=== PATIENT | male | born 1980 | race Caucasian/White ===

== ENCOUNTER 2018-11-16 22:42 | Emergency (ER) | payer OTHER ==
[~2018-11-16] VITALS: Ht 175.3 cm; Wt 72.6 kg
[2018-11-16] MEDS ORDERED: IBUPROFEN 800 MG TABLET ONE (23:41)
[2018-11-16] MEDS ORDERED: TDAP DIPH,PERTUSS,TET VAC/PF 0.5 ML DISP.SYRIN IM ONE ×2 (23:44→23:45)
[2018-11-16] MEDS ORDERED: IBUPROFEN 800 MG TABLET PO ONE (23:45)
--- NOTE | 2018-11-17 00:21 | NUR ---
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 Gait is stable v/s wnl. States sherly advised of d/c
--- NOTE | 2018-11-17 01:02 | NUR ---
D/c to home via ub[employer]. Signed and understand ACI. V/s wnl. Follow up with [facility] clinic fo kassi toe
[2018-11-17 01:07] VITALS: BP 100/74
== END 2018-11-17 01:09 | disposition home or self-care (01) ==
LOC: ER 22:44
DX: S92.412A Displaced fracture of proximal phalanx of left great toe, initial encounter for closed fracture (principal); S80.212A Abrasion, left knee, initial encounter; W20.8XXA Other cause of strike by thrown, projected or falling object, initial encounter; Y93.89 Activity, other specified; Y92.89 Other specified places as the place of occurrence of the external cause; Y99.8 Other external cause status
CPT/HCPCS: 73630; 90715; A4663

== ENCOUNTER 2020-03-12 08:38 | Emergency (ER) | payer SELFPAY ==
[~2020-03-12] VITALS: Ht 170.2 cm; Wt 70.3 kg
--- NOTE | 2020-03-12 08:47 | NUR ---
Pt states he was playing basketball on Sunday and was hit in the right side of jaw, causing a small lac inside his mouth. Since, pt has developed approx 1-1.5cm diameter abscess on his lower gumline. Pt c/o 10/07 pain currently. No other complaints, slight distress noted when talking.
--- NOTE | 2020-03-12 09:02 | NUR ---
Gave pt RX and d/c instructions, pt verbalized understanding.
== END 2020-03-12 09:04 | disposition home or self-care (01) ==
LOC: ER 08:38
DX: K04.7 Periapical abscess without sinus (principal)
CPT/HCPCS: A4663

== ENCOUNTER 2020-06-24 23:37 | Emergency (ER) | payer SELFPAY ==
[~2020-06-24] VITALS: Ht 172.7 cm; Wt 72.6 kg
[2020-06-25 00:25] LABS: BASOPHILS # (AUTO) 0.1 K/uL (0.0-8.0); BASOPHILS % (AUTO) 0.7 % (0.0-2.0); EOSINOPHILS # (AUTO) 0.5 K/uL (0.0-0.7); EOSINOPHILS % (AUTO) 5.6 % (0.0-7.0); HEMATOCRIT 38.1 % (36.7-47.1); LYMPHOCYTES # (AUTO) 0.9 K/uL (20.0-40.0); LYMPHOCYTES % (AUTO) 11.4 % (20.5-51.5); MEAN CORPUSCULAR HEMOGLOBIN 33.3 uug (23.8-33.4); MEAN CORPUSCULAR HGB CONC 34 g/dL (32.5-36.3); MEAN CORPUSCULAR VOLUME 97.5 fL (73.0-96.2); MONOCYTES # (AUTO) 1.4 K/uL (2.0-10.0); MONOCYTES % (AUTO) 17.4 % (0.0-11.0); NEUTROPHILS # (AUTO) 5.3 K/uL (1.8-8.9); NEUTROPHILS % (AUTO) 64.9 % (38.5-71.5); PLATELET COUNT (AUTO) 301 K/uL (152-348); RED BLOOD CELL COUNT(AUTO) 3.91 MIL/uL (4.06-5.63); WHITE BLOOD COUNT (AUTO) 8.2 K/uL (3.6-10.2)
[2020-06-25 00:41] LABS: CREATININE 1.2 mg/dL (0.6-1.3); POTASSIUM 3.6 mmol/L (3.5-5.1)
[2020-06-25 00:49] LABS: *BILIRUBIN,URIN NEGATIVE (NEGATIVE); *BLOOD, URINE NEGATIVE (NEGATIVE); *CLARITY,URINE CLEAR (CLEAR); *COLOR,URINE YELLOW (YELLOW); *KETONES,URINE NEGATIVE (NEGATIVE); *UROBILINOGEN,URINE 0.2 E.U./dl (NORMAL); LEUKOCYTE ESTERASE ,URINE NEGATIVE (NEGATIVE); NITRITE, URINE NEGATIVE (NEGATIVE); PH,URINE 8.5 (5.0-8.0); UGLUCOSE NEGATIVE (NEGATIVE)
[2020-06-25 00:58] LABS: BILIRUBIN,DIRECT 0.3 mg/dL (0.0-0.2); BILIRUBIN,TOTAL 0.9 mg/dL (0.2-1.0); TOTAL PROTEIN, SERUM 7.5 g/dL (6.4-8.2)
--- NOTE | 2020-06-25 01:00 | NUR ---
Patient is resting in room, no acute distress is noted at this time.
[2020-06-25 02:16] LABS: EOSINOPHILS % (MANUAL) 5 % (0-8); LYMPHOCYTES % (MANUAL) 10 % (20-40); MONOCYTES % (MANUAL) 13 % (2-10); NEUTROPHILS % (MANUAL) 72 % (42-75)
--- NOTE | 2020-06-25 03:00 | NUR ---
Patient is sleeping in room, eyes closed.
[2020-06-25 04:15] VITALS: BP 107/71
--- NOTE | 2020-06-25 04:15 | NUR ---
Patient discharged to home in stable condition. Written and verbal after care instructions given. Patient verbalizes understanding of instructions. Stressed follow up or return to ER for worsening s/s. Patient ambulates without difficulty, left with all personal belongings.
== END 2020-06-25 04:15 | disposition home or self-care (01) ==
LOC: ER 23:41
DX: R60.0 Localized edema (principal); E87.1 Hypo-osmolality and hyponatremia; R74.01 Elevation of levels of liver transaminase levels
CPT/HCPCS: 36415; 70030-TC; 85025; 93005; A4663

== ENCOUNTER 2020-10-10 09:34 | Inpatient (IN) | payer SELFPAY ==
[~2020-10-10] VITALS: Ht 175.3 cm; Wt 72.6 kg
--- NOTE | 2020-10-10 09:40 | NUR ---
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
[2020-10-10] MEDS ORDERED: EPINEPHRINE 1:10,000 1 MG/10 ML DISP.SYRIN ONE (09:55)
[2020-10-10] MEDS ORDERED: FAMOTIDINE. 20 MG/2 ML VIAL IV ONE ×2 (09:55→10:00)
[2020-10-10] MEDS ORDERED: EPINEPHRINE 1 MG/1 ML AMP ONE (09:55)
[2020-10-10] MEDS ORDERED: methylPREDNISolone SOD SUCC 125 MG/2 ML VIAL ONE (09:55)
[2020-10-10] MEDS ORDERED: methylPREDNISolone SOD SUCC 125 MG/2 ML VIAL IV ONE (10:00)
[2020-10-10] MEDS ORDERED: EPINEPHRINE 1 MG/1 ML AMP IM ONE (10:00)
[2020-10-10] MEDS ORDERED: EPINEPHRINE 1:10,000 1 MG/10 ML DISP.SYRIN IV ONE (10:15)
--- NOTE | 2020-10-10 10:20 | NUR ---
Patient no longer feels like his throat is swelling, noted talking on cell phone at this time, vitals signs are stable at this time
[2020-10-10 10:26] LABS: BASOPHILS % (AUTO) 0.6 % (0.0-2.0); EOSINOPHILS # (AUTO) 0.5 K/uL (0.0-0.7); HEMATOCRIT 41.4 % (36.7-47.1); HEMOGLOBIN 13.9 g/dL (12.5-16.3); LYMPHOCYTES # (AUTO) 2.6 K/uL (20.0-40.0); LYMPHOCYTES % (AUTO) 38.9 % (20.5-51.5); MEAN CORPUSCULAR HEMOGLOBIN 33.1 uug (23.8-33.4); MEAN CORPUSCULAR HGB CONC 34 g/dL (32.5-36.3); MEAN CORPUSCULAR VOLUME 98.6 fL (73.0-96.2); MONOCYTES # (AUTO) 0.4 K/uL (2.0-10.0); MONOCYTES % (AUTO) 5.9 % (0.0-11.0); NEUTROPHILS # (AUTO) 3.1 K/uL (1.8-8.9); NEUTROPHILS % (AUTO) 46.6 % (38.5-71.5); PLATELET COUNT (AUTO) 154 K/uL (152-348); WHITE BLOOD COUNT (AUTO) 6.7 K/uL (3.6-10.2)
[2020-10-10 10:32] LABS: CREATININE 1.2 mg/dL (0.6-1.3); POTASSIUM 3.7 mmol/L (3.5-5.1)
[2020-10-10 10:37] LABS: BILIRUBIN,DIRECT 0.5 mg/dL (0.0-0.2); BILIRUBIN,TOTAL 1.2 mg/dL (0.2-1.0); TOTAL PROTEIN, SERUM 7.3 g/dL (6.4-8.2)
--- NOTE | 2020-10-10 11:20 | NUR ---
1006 vital sign in MD charting is incorrect, MD made aware
[2020-10-10] MEDS ORDERED: ACETAMINOPHEN 325 MG TABLET PO PRN (13:45)
[2020-10-10] MEDS ORDERED: diphenhydrAMINE 50 MG/1 ML VIAL IV PRN (13:45)
[2020-10-10] MEDS ORDERED: MAGNESIUM HYDROXIDE 30 ML LIQUID UDC PO PRN (13:45)
[2020-10-10] MEDS ORDERED: HYDROCODONE/APAP 5-325MG TABLET PO PRN ×2 (13:45→14:00)
[2020-10-10] MEDS ORDERED: IV NS 1000 ML 1,000 ML IV PRN (13:45)
[2020-10-10] MEDS ORDERED: ONDANSETRON 4 MG/2 ML VIAL IV PRN (13:45)
--- NOTE | 2020-10-10 13:54 | NUR ---
Patient is eating lunch tray with good appetite. "I feel really better." per patient. Patient is waiting for [facility] bed & nurse@this time
[2020-10-10] MEDS: methylPREDNISolone SOD SUCC 125 MG/2 ML VIAL IV SCH ×2 (14:00→22:17)
[2020-10-10] MEDS ORDERED: diphenhydrAMINE 50 MG/1 ML VIAL IV ONE (18:00)
[2020-10-10] MEDS ORDERED: diphenhydrAMINE 50 MG/1 ML VIAL ONE (18:07)
--- NOTE | 2020-10-10 18:25 | NUR ---
Patient noted resting in bed, awaiting bed on medsurg unit
--- NOTE | 2020-10-10 19:22 | NUR ---
Report given by LADARIUS Regalado. Pt. denies sob, swallowing at this time.
--- NOTE | 2020-10-10 20:00 | NUR ---
Gave report to LADARIUS Yung for transfer to CCU.
--- NOTE | 2020-10-10 20:45 | NUR ---
Received patient from the ER. Patient arrived on gurney, but able to ambulate to his bed. Patient is A/O x4, here for severe allergic reaction to a drink that he was not aware of contained coconut, to which he is allergic to. Patient presents with NO SOB, NO signs of respiratory distress. Patient not complaining of any of the issues associated with his allergic reaction which he did have in the ER on arrival. No sign of angioedema, lips, tongue, and throat WNL in size and color, NO report of difficulty swallowing. Skin is clear, NO sign of urticaria. Patient placed on the monitor. VS stable, BP 121/91, HR 72, Resp 18, SpO2 100% on RA. Patient is in good spirits but was justifiably concerned on his arrival in the ER, and remains concerned of the symptoms reappearing. Reassured him that I have orders for all medications necessary should any symptoms present.
[2020-10-10 20:54] VITALS: BP 121/91
[2020-10-10 21:00] VITALS: BP 144/77
[2020-10-10 22:00] VITALS: BP 119/77
[2020-10-10] MEDS: FAMOTIDINE. 20 MG/2 ML VIAL IV SCH (22:17)
[2020-10-10 23:00] VITALS: BP 121/75
[2020-10-11] VITALS (16 sets, daily range): BP systolic 97–118; BP diastolic 58–81
[2020-10-11 05:05] LABS: BASOPHILS % (AUTO) 0.1 % (0.0-2.0); EOSINOPHILS % (AUTO) 0.2 % (0.0-7.0); HEMATOCRIT 38.8 % (36.7-47.1); HEMOGLOBIN 13.2 g/dL (12.5-16.3); LYMPHOCYTES # (AUTO) 0.7 K/uL (20.0-40.0); LYMPHOCYTES % (AUTO) 7.3 % (20.5-51.5); MEAN CORPUSCULAR HEMOGLOBIN 33.8 uug (23.8-33.4); MEAN CORPUSCULAR HGB CONC 34 g/dL (32.5-36.3); MEAN CORPUSCULAR VOLUME 99.5 fL (73.0-96.2); MONOCYTES # (AUTO) 0.1 K/uL (2.0-10.0); MONOCYTES % (AUTO) 1.6 % (0.0-11.0); NEUTROPHILS # (AUTO) 8.4 K/uL (1.8-8.9); NEUTROPHILS % (AUTO) 90.8 % (38.5-71.5); PLATELET COUNT (AUTO) 138 K/uL (152-348); WHITE BLOOD COUNT (AUTO) 9.2 K/uL (3.6-10.2)
[2020-10-11 05:15] LABS: BILIRUBIN,TOTAL 0.7 mg/dL (0.2-1.0); CREATININE 1.3 mg/dL (0.6-1.3); MAGNESIUM 1.7 mg/dL (1.8-2.4); POTASSIUM 3.8 mmol/L (3.5-5.1); TOTAL PROTEIN, SERUM 7.4 g/dL (6.4-8.2)
--- NOTE | 2020-10-11 06:30 | NUR ---
Patient remains stable this morning with NO SOB, and NO signs of respiratory distress during the night. Throughout the night, the patient did not complain of any of the symptoms associated with his allergic reaction reoccurring. No sign of angioedema, lips, tongue, and throat WNL in size and color, NO report of difficulty swallowing at this time. Skin remains clear, NO sign of urticaria. PRN medications not needed during shift. VS remained stable during the night. Patient's HR did drop into the high 50s while sleeping, however patient is athletically active and this is normal for him, non-symptomatic drop in heart rate.
[2020-10-11] MEDS: methylPREDNISolone SOD SUCC 125 MG/2 ML VIAL IV SCH ×2 (06:51→14:02)
[2020-10-11] MEDS: FAMOTIDINE. 20 MG/2 ML VIAL IV SCH (08:30)
--- NOTE | 2020-10-11 09:02 | NUR ---
Pt.was seen by BHAVANI AYALA NP
[2020-10-11] MEDS: MAGNESIUM SULFATE/D5W 100 ML IV SCH ×2 (10:41→11:42)
[2020-10-11] MEDS ORDERED: FAMO-132 PO (11:10)
[2020-10-11] MEDS ORDERED: PRED20TA PO (11:10)
[2020-10-11] MEDS ORDERED: EPIN0.3A4 IM (11:10)
[2020-10-11] MEDS ORDERED: predniSONE 20 MG TABLET PO ONE (11:15)
--- NOTE | 2020-10-11 15:05 | NUR ---
Pt.was seen by Pharmacist with education for new d/c home meds.
--- NOTE | 2020-10-11 15:33 | NUR ---
D/c instr.and education done,awaiting for family to sisal picker pt.
--- NOTE | 2020-10-11 15:54 | NUR ---
Pt.d/c home, brother to sampler pickup pt.No s/s of any distress,pt.denies any SOB.
== END 2020-10-11 15:55 | disposition home or self-care (01) | DRG 916 ==
LOC: ER 09:34 → CCU 20:22
PROVIDERS: ADMIT Nurse Practitioner Family; ATTEND Nurse Practitioner Family
DX: T78.09XA Anaphylactic reaction due to other food products, initial encounter (principal); E87.1 Hypo-osmolality and hyponatremia; R74.01 Elevation of levels of liver transaminase levels; I95.9 Hypotension, unspecified
CPT/HCPCS: 36415; 70030-TC; 71045; 83735; 85025; 93005; A4663; G0378; J0171; J1200; J2930; J3475; J3490; J7030; J7060; J7512

== ENCOUNTER 2020-12-03 23:37 | Emergency (ER) | payer MEDICAID, OTHER ==
[~2020-12-03] VITALS: Ht 175.3 cm; Wt 74.8 kg
[~2020-12-03 23:37] MED LIST: EPIN0.3A4 IM; FAMO-132 PO; PRED20TA PO
[2020-12-04 00:43] LABS: HEMATOCRIT 38.5 % (36.7-47.1); MEAN CORPUSCULAR HEMOGLOBIN 33.8 uug (23.8-33.4); MEAN CORPUSCULAR VOLUME 99.4 fL (73.0-96.2); PLATELET COUNT (AUTO) 247 K/uL (152-348)
[2020-12-04 00:53] LABS: CREATININE 1.1 mg/dL (0.6-1.3); POTASSIUM 5.1 mmol/L (3.5-5.1)
[2020-12-04 01:09] LABS: BILIRUBIN,DIRECT 0.1 mg/dL (0.0-0.2); BILIRUBIN,TOTAL 0.3 mg/dL (0.2-1.0); TOTAL PROTEIN, SERUM 9.2 g/dL (6.4-8.2)
--- NOTE | 2020-12-04 01:30 | NUR ---
Patient is resting comfortably in bed with eyes closed, no acute distress noted.
[2020-12-04 03:30] VITALS: BP 124/86
--- NOTE | 2020-12-04 03:30 | NUR ---
Patient discharged to home in stable condition. Written and verbal after care instructions given. Patient verbalizes understanding of instructions. Stressed follow up or return to ER for worsening s/s. Patient ambulates with steady gait, V/S stable, IV line placed by [employer] CONSULTANT to ER removed, patient left with all belongings.
[2020-12-06 15:17] LABS: HEPATITIS A AB, TOTAL Positive
[2020-12-06 15:20] LABS: HEPATITIS B SURFACE AG Negative
== END 2020-12-04 03:30 | disposition home or self-care (01) ==
LOC: ER 23:38
DX: R00.0 Tachycardia, unspecified (principal); R22.1 Localized swelling, mass and lump, neck; R74.01 Elevation of levels of liver transaminase levels; R94.31 Abnormal electrocardiogram [ECG] [EKG]; Z87.892 Personal history of anaphylaxis; Z91.013 Allergy to seafood; Z91.018 Allergy to other foods
CPT/HCPCS: 36415; 70030-TC; 83735; 85025; 86708; 86803; 87340; 93005